=== PATIENT | female | born 1955 ===

== ENCOUNTER 2017-10-01 06:48 | Day surgery (SDC) | payer MEDICAID ==
[2017-09-13 11:07] VITALS: BMI 27.4
[2017-10-01] MEDS ORDERED: Morphine 10 mg/5 ml Oral Soln PO PRN (08:05)
[2017-10-01] MEDS ORDERED: Dextrose 5%/0.45% NS 1,000 ML IV SCH (08:15)
[2017-10-01] MEDS ORDERED: Lidocaine 2% w Epi 1:100,000 Inj IJ ONE ×2 (11:27→11:30)
[2017-10-01] MEDS ORDERED: Lactated Ringer's 1,000 ML IV ONE (11:30)
[2017-10-01] MEDS ORDERED: ceFAZolin IV 1 gm in Dextrose 1 GM/50 ML BAG IVPB ONE (11:32)
[2017-10-01] MEDS ORDERED: Midazolam 2 MG/2 ML VIAL ONE (11:36)
[2017-10-01] MEDS ORDERED: Oxymetazoline 0.05% Nasal Spray (30 ml) NS ONE (11:36)
[2017-10-01] MEDS ORDERED: Lidocaine Hydrochloride 5 ML INJ ONE ×2 (11:37→12:44)
[2017-10-01] MEDS ORDERED: Propofol 10 mg/ml Inj (20 ML) ONE ×2 (11:37→12:44)
[2017-10-01] MEDS ORDERED: Rocuronium 10 mg/ml (5 ml) ONE (11:38)
[2017-10-01] MEDS ORDERED: Succinylcholine Chloride 20 mg/ml Syr (5 ml) IV ONE (11:39)
[2017-10-01] MEDS ORDERED: EPINEPHrine 1:1000 Nasal Sol(30mL) ONE (11:39)
[2017-10-01] MEDS ORDERED: Esmolol 100 mg/10ml Inj IV ONE (11:56)
[2017-10-01] MEDS ORDERED: Neostigmine Methylsulfate 3mg/3ml Syringe IV ONE (12:46)
[2017-10-01 15:01] VITALS: RESP 16
--- NOTE | 2017-10-01 15:14 | OP ---
PROCEDURE DATE: 10/01/2017 PREOPERATIVE DIAGNOSES: Sinusitis, large turbinates. POSTOPERATIVE DIAGNOSES: Sinusitis, large turbinates. PROCEDURE: Endoscopic bilateral maxillary antrostomy, endoscopic bilateral ethmoidectomy, endoscopic bilateral frontal sinusotomy, endoscopic right sphenoidotomy, endoscopic bilateral inferior turbinate reduction. DESCRIPTION OF PROCEDURE: The patient was brought into the room, placed in supine position, anesthesia was initiated through an ET tube. The patient was draped in the usual manner. Adrenaline-soaked pledgets were inserted in the right nasal cavity, remained there for at least 5 minutes and removed. A 0-degree scope was inserted into the nasal cavity. The inferior turbinates were noted to be enlarged. They were reduced using scissors going from an inferior to superior, anterior to posterior direction on both sides, first on the left, then on the right. Bleeding was controlled using suction cautery. Attention was turned to the left. The middle turbinate was injected with lidocaine with epinephrine and then medialized. The uncinate process was medialized and removed. The ethmoid bulla was entered using a debrider inferomedially, going posteriorly to the basal lamella, then anteriorly and superiorly until the ethmoid bulla was removed. The basal lamella was entered. Posterior ethmoid cells were entered and opened. Skull base was identified and followed anteriorly all the way to the area of the anterior ethmoid air cells. Frontal recess was noted to be stenosed and opened using forceps and a curved suction was used to locate the maxillary antrum, which was noted to be stenosed and opened using forceps and attention was turned to the right. The middle turbinate was injected with lidocaine with epinephrine and medialized. The uncinate process was medialized using a [place] elevator and removed using forceps. A debrider was used to enter the ethmoid bulla inferomedially, going posteriorly to the basal lamella, then anteriorly and superiorly until the ethmoid bulla was removed. The basal lamella was entered. Posterior ethmoid cells were entered and opened. The skull base was identified and followed anteriorly all the way to the area of the anterior ethmoid air cells. The frontal recess was noted to be stenosed and opened using forceps. The sphenoid antrum was noted to be stenosed and opened using forceps. The maxillary antrum was located using a seeker and opened using forceps. It was noted to be stenosed. Bleeding was controlled using adrenaline-soaked pledgets and suction cautery on both sides. Splints were placed. The patient was taken off anesthesia and taken to recovery room in a stable manner. Fabian Dennis MD
[2017-10-01] MEDS ORDERED: Lactated Ringer's 500 ML IV ONE (15:40)
[2017-10-01 16:56] VITALS: BP 127/59; PULSE 73; TEMP 97.8; O2SAT 97
== END 2017-10-01 17:00 | disposition home or self-care (01) ==
LOC: C.SDS 06:48
PROVIDERS: ATTEND Otolaryngology
DX: J32.0 Chronic maxillary sinusitis (principal); J32.1 Chronic frontal sinusitis; J34.3 Hypertrophy of nasal turbinates; R73.01 Impaired fasting glucose; M54.2 Cervicalgia; E78.2 Mixed hyperlipidemia; M47.812 Spondylosis without myelopathy or radiculopathy, cervical region; J34.2 Deviated nasal septum
CPT/HCPCS: 30801; 31254; 31256; 31276; 31287; 82948; 88304; J0690; J1100; J1170; J2250; J2405; J2704; J2710; J3010; J7120

== ENCOUNTER 2018-10-28 09:53 | Outpatient (CLI) | payer MEDICAID | END 2018-10-28 09:54 | disposition home or self-care (01) | LOC: C.RADH 09:53 | DX: M25.569 Pain in unspecified knee (principal) ==